=== PATIENT | male | born 1985 | race Caucasian/White ===

== ENCOUNTER 2024-07-10 01:13 | Inpatient (IN) | payer OTHER ==
[~2024-07-10] VITALS: Ht 188 cm; Wt 92.7 kg
[2024-07-10 02:31] LABS: COVID AG,FIA SOURCE NASAL SWAB
[2024-07-10 02:35] LABS: BASOPHILS % (AUTO) 1.1 % (0.0-2.0); EOSINOPHILS % (AUTO) 1.9 % (1.0-6.0); HEMATOCRIT 44.1 % (41-53); LYMPHOCYTES # (AUTO) 2.9 K/uL (1.0-4.8); LYMPHOCYTES % (AUTO) 30.8 % (22.0-44.0); MEAN CORPUSCULAR HEMOGLOBIN 21.9 pg (26.0-34.0); MEAN CORPUSCULAR HGB CONC 31.8 G/dL (31.0-37.0); MEAN CORPUSCULAR VOLUME 69 fL (80-100); MONOCYTES # (AUTO) 0.7 K/uL (0.1-1.0); MONOCYTES % (AUTO) 7.6 % (2.0-9.0); NEUTROPHILS # (AUTO) 5.5 K/uL (1.8-7.7); NEUTROPHILS % (AUTO) 58.6 % (40.0-70.0); PLATELET COUNT (AUTO) 221 K/uL (150-450); RED BLOOD CELL COUNT(AUTO) 6.42 MIL/uL (4.50-5.90); RED CELL DISTRIBUTION WIDTH 16.1 % (11.5-14.5); WHITE BLOOD COUNT (AUTO) 9.5 K/uL (4.5-11.0)
[2024-07-10 02:35] LABS: APPEARANCE,URINE CLEAR (CLEAR); BILIRUBIN,URINE NEGATIVE (NEGATIVE); COLOR,URINE LIGHT YELLOW (YELLOW); GLUCOSE, URINE (UA) NEGATIVE (NEGATIVE); KETONES,URINE NEGATIVE (NEGATIVE); LEUKOCYTE ESTERASE ,URINE NEGATIVE (NEGATIVE); NITRATE,URINE NEGATIVE (NEGATIVE); OCCULT BLOOD,URINE NEGATIVE (NEGATIVE); PH,URINE 5.5 (5.0-8.0); PH,URINE DRUG SCREEN 5.5 (5.0-8.0); PROTEIN,URINE NEGATIVE (NEGATIVE); SPECIFIC GRAVITIY, URINE 1.012 (1.003-1.030); UROBILINOGEN,URINE <=1.0 mg/dL (<=1.0)
[2024-07-10 02:41] LABS: RBC MORPHOLOGY COMMENT ABNORMAL RBC MORPH
[2024-07-10 02:42] LABS: AMPHET/METH SCREEN,URINE NEGATIVE (NEGATIVE); BARBITURATE SCREEN, URINE NEGATIVE (NEGATIVE); BENZODIAZEPINES SCREEN,URINE NEGATIVE (NEGATIVE); CANNABINOID SCREEN,URINE NEGATIVE (NEGATIVE); COCAINE SCREEN,URINE NEGATIVE (NEGATIVE); METHADONE SCREEN, URINE NEGATIVE (NEGATIVE); OPIATE SCREEN,URINE NEGATIVE (NEGATIVE); PHENCYCLIDINE SCREEN,URINE NEGATIVE (NEGATIVE)
[2024-07-10 02:48] LABS: SARS-COV2 (COVID) ANTIGEN,FIA Negative (Negative)
[2024-07-10 02:51] LABS: ALCOHOL, URINE DRUG SCREEN NEGATIVE (NEGATIVE)
[2024-07-10 02:55] LABS: ANION GAP 8 mmol/L (8-16); CALCIUM, TOTAL 8.8 mg/dL (8.8-10.5); CARBON DIOXIDE 27 mmol/L (22-29); CHLORIDE 101 mmol/L (98-107); CREATININE 0.72 mg/dL (0.60-1.30); GLOMERULAR FILTR. RATE CALC > 60 mL/min (>60); GLUCOSE,RANDOM 84 mg/dL (70-110); POTASSIUM 3.9 mmol/L (3.5-5.1); SODIUM SERUM 136 mmol/L (136-145); UREA NITROGEN, BLOOD 18 mg/dL (7-18)
[2024-07-10] MEDS ORDERED: FLUT15.812 NASAL (07:04)
[2024-07-10] MEDS ORDERED: ARIP15TA27 PO (07:04)
[2024-07-10] MEDS ORDERED: NAPR-1196 PO (07:04)
[2024-07-10] MEDS ORDERED: OMEP-148 PO (07:04)
[2024-07-10] MEDS ORDERED: PARO-38 PO (07:04)
[2024-07-10] MEDS ORDERED: CALC500T37 PO (07:04)
[2024-07-10] MEDS: ACETAMINOPHEN 500 MG TABLET PO ONE (07:06)
[2024-07-10] MEDS: IBUPROFEN 600 MG TABLET PO ONE (07:06)
[2024-07-10] MEDS: HEPARIN SODIUM,PORCINE 5,000 UNITS/ML VIAL SQ SCH (07:41)
[2024-07-10 08:45] VITALS: BP 115/72; PULSE 66; RESP 18; TEMP 97.3; O2SAT 97
[2024-07-10] MEDS: ACETAMINOPHEN 325 MG TABLET PO PRN (16:13)
[2024-07-10 19:34] VITALS: BP 109/70; PULSE 79; RESP 18; TEMP 98.1; O2SAT 96
[2024-07-10] MEDS: QUEtiapine FUMARATE 25 MG TABLET PO ONE (21:04)
[2024-07-10] MEDS: MELATONIN 3 MG TABLET PO PRN (21:58)
[2024-07-11 05:22] VITALS: BP 102/67; PULSE 64; RESP 18; TEMP 97.2; O2SAT 96
[2024-07-11 08:10] LABS: BASOPHILS % (AUTO) 3.7 % (0.0-2.0); EOSINOPHILS % (AUTO) 2.1 % (1.0-6.0); HEMATOCRIT 44.7 % (41-53); HEMOGLOBIN 14.4 g/dL (13.5-17.5); LYMPHOCYTES # (AUTO) 2.2 K/uL (1.0-4.8); LYMPHOCYTES % (AUTO) 28.1 % (22.0-44.0); MEAN CORPUSCULAR HEMOGLOBIN 22.3 pg (26.0-34.0); MEAN CORPUSCULAR HGB CONC 32.3 G/dL (31.0-37.0); MEAN CORPUSCULAR VOLUME 69 fL (80-100); MONOCYTES # (AUTO) 0.6 K/uL (0.1-1.0); NEUTROPHILS # (AUTO) 4.4 K/uL (1.8-7.7); NEUTROPHILS % (AUTO) 58.1 % (40.0-70.0); PLATELET COUNT (AUTO) 234 K/uL (150-450); RED BLOOD CELL COUNT(AUTO) 6.47 MIL/uL (4.50-5.90); RED CELL DISTRIBUTION WIDTH 16.3 % (11.5-14.5); WHITE BLOOD COUNT (AUTO) 7.7 K/uL (4.5-11.0)
[2024-07-11 08:24] LABS: ANION GAP 6 mmol/L (8-16); CALCIUM, TOTAL 8.3 mg/dL (8.8-10.5); CARBON DIOXIDE 28 mmol/L (22-29); CHLORIDE 105 mmol/L (98-107); CREATININE 0.76 mg/dL (0.60-1.30); GLOMERULAR FILTR. RATE CALC > 60 mL/min (>60); GLUCOSE,RANDOM 93 mg/dL (70-110); SODIUM SERUM 139 mmol/L (136-145); UREA NITROGEN, BLOOD 14 mg/dL (7-18)
[2024-07-11 08:47] LABS: RBC MORPHOLOGY COMMENT ABNORMAL RBC MORPH
[2024-07-11 09:14] VITALS: BP 95/70; PULSE 58; RESP 18; TEMP 97.3; O2SAT 96
[2024-07-11 19:12] VITALS: BP 119/75; PULSE 68; RESP 18; TEMP 97.5; O2SAT 97
[2024-07-11] MEDS: PARoxetine HCL 20 MG TABLET PO SCH (20:40)
[2024-07-11] MEDS: OLANZapine 10 MG TABLET PO SCH (20:40)
[2024-07-12 05:35] VITALS: BP 102/72; PULSE 54; RESP 20; TEMP 97.5; O2SAT 94
[2024-07-12 07:40] VITALS: BP 99/74; PULSE 66; RESP 18; TEMP 97.9; O2SAT 100
[2024-07-12 20:10] VITALS: BP 114/81; PULSE 82; RESP 20; TEMP 97.5; O2SAT 96
[2024-07-13 08:25] VITALS: BP 104/72; PULSE 60; RESP 17; TEMP 97.7; O2SAT 97
[2024-07-13] MEDS: HydrOXYzine HCL 25 MG TABLET PO ONE (18:25)
[2024-07-13 19:24] VITALS: BP 129/92; PULSE 83; RESP 18; TEMP 97.7; O2SAT 95
[2024-07-14 04:42] VITALS: BP 113/69; PULSE 61; RESP 18; TEMP 97.7; O2SAT 95
[2024-07-14 08:30] VITALS: BP 114/86; PULSE 72; RESP 18; TEMP 97.5; O2SAT 100
[2024-07-14] MEDS: OLANZapine 10 MG TABLET PO SCH (13:33)
[2024-07-14 20:28] VITALS: BP 124/88; PULSE 79; RESP 18; TEMP 97.7; O2SAT 96
[2024-07-15 05:04] VITALS: BP 107/74; PULSE 64; RESP 18; TEMP 97.3; O2SAT 95
[2024-07-15 08:00] VITALS: BP 114/81; PULSE 55; RESP 18; TEMP 97.3; O2SAT 98
[2024-07-15] MEDS ORDERED: OLAN10TA74 PO (12:14)
[2024-07-15 20:04] VITALS: BP 143/91; PULSE 85; RESP 20; TEMP 97.9; O2SAT 98
== END 2024-07-15 20:15 | DRG 885 ==
LOC: EMS 04:15 → EDH 05:34 → 6S 08:29
PROVIDERS: ADMIT Internal Medicine; ATTEND Internal Medicine
DX: F25.1 Schizoaffective disorder, depressive type (principal); R45.851 Suicidal ideations; G47.00 Insomnia, unspecified; F10.90 Alcohol use, unspecified, uncomplicated; F14.90 Cocaine use, unspecified, uncomplicated; R73.03 Prediabetes; R07.89 Other chest pain; F43.10 Post-traumatic stress disorder, unspecified; Z87.891 Personal history of nicotine dependence; Z79.899 Other long term (current) drug therapy; Y08.89XA Assault by other specified means, initial encounter; Y93.89 Activity, other specified; Y92.89 Other specified places as the place of occurrence of the external cause; Y99.8 Other external cause status
CPT/HCPCS: 71045; 80048; 80307; 81003; 83735; 85025; 99285; G0480; J1644; 36415-L1; 36415-TC